=== PATIENT | female | born 1945 | race Caucasian/White ===

== ENCOUNTER → 2016-12-26 | Day surgery (SDC) | payer OTHER ==
[2016-12-13 13:24] VITALS: Ht 170.2 cm; Wt 83.2 kg
[~2016-12-26] VITALS: Ht 170.2 cm; Wt 83.2 kg
[~2016-12-26] MED LIST: ACETAMINOPHEN 325 MG TAB PO PRN; AMVISC PLUS 0.8ML SYRINGE INT OCU ONE; ASPI81TA28 PO; ATOR-24 PO; ATROPINE SULFATE 0.1 MG/ML 5ML SYR IV PRN; BRIMONIDINE TART 0.2% OP SOLN PER DROP CHARGE ONE; BSS FLUSH ONE; DICY10CA12 PO; ENDOCOAT 0.85ML SYRINGE INT OCU ONE; EpHEDrine SULFATE INJ 50 MG/ML AMP IV PRN; EpINEphrine INJ 1MG/ML AMP 1 MG/ML AMP ONE; GLY/5 PO; LACTATED RINGER'S 1000ML 500 ML IV SCH; LIDOCAINE 4% OP SOLN DROP CHARGE ONE; LIDOCAINE 4% OP SOLN DROP CHARGE OPL SCH; LIDOCAINE HCL 1% MPF 2 ML VIAL ONE; LISI-729 PO; METF500T5 PO; MIDAZOLAM HCL 1 MG/ML 2ML VIAL ONE; MOXIFLOXACIN OPH SOLN PER DROP CHARGE ONE; OMEP40CA PO; POVIDONE-IODINE OP SOLN 30 ML BTL ONE; PROPARACAINE 0.5% OP SOLN PER DROP CHARGE OPL SCH; SITA50TA PO; TOBRAMYCIN/DEXAMETHASONE OPH OINT PER APPLN CHARGE ONE; VISCOAT 0.5ML SYRINGE INT OCU ONE
[2016-12-26] MEDS: PHENYLEPHRINE HCL 2.5% OP SOLN PER DROP CHARGE OPL SCH ×2 (06:40→06:45)
[2016-12-26] MEDS: TROPICAMIDE 1% OP SOLN PER DROP CHARGE OPL SCH ×2 (06:41→06:46)
[2016-12-26] MEDS: CYCLOPENTOLATE HCL 1% OP SOLN PER DROP CHARGE OPL SCH ×2 (06:42→06:47)
[2016-12-26] MEDS: KETOROLAC 0.5% OP SOLN PER DROP CHARGE OPL SCH ×2 (06:43→06:48)
[2016-12-26] MEDS: MOXIFLOXACIN OPH SOLN PER DROP CHARGE OPL SCH ×2 (06:44→06:54)
--- NOTE | 2016-12-26 06:49 | History & Physical Bridge - [place] ---
H&P Re-Evaluation Bridge Note: I have examined the patient, reviewed the History & Physical and in the interval since the performance of the History & Physical I have noted the following changes of clinical significance: No changes noted
--- NOTE | 2016-12-26 07:31 | Discharge Instructions-SurgCtr ---
Discharge Instructions Visit Reason for Visit: Cataract Left Eye Discharge Discharge Diagnosis / Problem: cataract left eye Discharge Goals Goal(s): Improve function Activity Recommendations Activity Limitations: per Instructions/Follow-up section Lifting Limitations: no more than 5 pounds Anesthesia . Post Anesthesia Instructions: If you have had General Anesthesia or IV Sedation: * Do not drive today. * Resume driving when surgeon permits. * Do not make important decisions or sign legal documents today. * Call surgeon for: 1. Temperature elevations greater than 101 degrees F. 2. Uncontrollable pain. 3. Excessive bleeding. 4. Persistent nausea and vomiting. 5. Medication intolerance (nausea, vomiting or rash). * For nausea and vomiting use only clear liquids such as: tea, soda, bouillon until nausea subsides, then gradually increase diet as tolerated. * If you have any concerns or questions, call your surgeon's office. If physician is unavailable and it is an emergency, call 911 or go to the nearest emergency room. . Instructions / Follow-Up Instructions / Follow-Up ACTIVITY RECOMMENDATIONS: * Light activities * You may walk outside, read, watch television. * Mild irritation and blurred vision are common for the first few days, redness around the white part of the eye is common. MEDICATIONS: Resume previous medications unless instructed otherwise by your surgeon. Eye drops (today and tomorrow): Ofloxacin - one drop in operative eye every 2 hours while awake Prednisolone 1% - one drop in operative eye every 2 hours while awake Bromfenac - one drop in operative eye once daily SPECIAL CARE INSTRUCTIONS: * If any problems or concerns, please call Dr. Winter's office at . * Keep plastic shield taped over eye to sleep at night. * Keep plastic shield taped over eye except to administer eye drops. * Keep plastic shield on until office visit the following day. FOLLOW UP VISIT: Follow-up with Dr. Winter in the [place] office as scheduled. If not already scheduled, please call the office at . Diet Recommendations Home Diet: resume previous diet Procedures Procedures Performed: Left Cataract Phacoemulsification With Intraocular Lens Implant Pending Studies Studies pending at discharge: no Medical Emergencies . Who to Call and When: Medical Emergencies: If at any time you feel your situation is an emergency, please call 911 immediately. . Non-Emergent Contact Non-Emergency issues call your: Veterans' Counselor . . "Provider Documentation" section prepared by Farooq Winter.
--- NOTE | 2016-12-26 07:31 | [facility] Post Operative Brief Note ---
Immediate Operative Summary Operative Date Dec 26, 2016. Pre-Operative Diagnosis cataract left eye Post-Operative Diagnosis same Procedure(s) Performed Left Cataract Phacoemulsification With Intraocular Lens Implant Surgeon Dr. Winter Experimental Display Builder Surgeon(s) none Estimated Blood Loss 0 Findings cataract left eye Specimens none Complication(s) None Disposition Recovery Room / PACU
[2016-12-26 07:32] VITALS: TEMP 36.9
--- NOTE | 2016-12-26 07:42 | Anesthesia Progress Nt - [facility] ---
Anesthesia Post Op Note Date & Time Dec 26, 2016 at 07:43 Vital Signs Pain Intensity: 0 Vital Signs Past 12 Hours Date Time Temp Pulse Resp B/P Pulse Ox O2 Delivery O2 Flow Rate FiO2 12/26/16 07:32 36.9 80 14 133/82 98 Room Air 12/26/16 06:39 36.6 88 16 159/79 98 Room Air Notes Mental Status: alert / awake / arousable, participated in evaluation Pt Amnestic to Procedure: Yes Nausea / Vomiting: adequately controlled Pain: adequately controlled Airway Patency, RR, SpO2: stable & adequate BP & HR: stable & adequate Hydration State: stable & adequate Anesthetic Complications: no major complications apparent
[2016-12-26 07:55] VITALS: BP 126/75; PULSE 78; O2SAT 97
--- NOTE | 2016-12-26 08:43 | OPERATIVE REPORT ---
DATE OF OPERATION: 12/26/2016 PREOPERATIVE DIAGNOSIS: Cataract, left eye. POSTOPERATIVE DIAGNOSIS: Cataract, left eye. PROCEDURE: Phacoemulsification cataract extraction with intraocular lens placement, left eye. SURGEON: Dr. Winter. COMPLICATIONS: None. ESTIMATED BLOOD LOSS: None. ANESTHESIA: Topical with sedation. OPERATION AND FINDINGS: After informed consent was obtained in the holding area the patient was wheeled back to the Operating Room where cardiac monitoring leads and oxygen by nasal cannula was administered by Anesthesia. Gentle IV sedation was given, and the patient's left eye was prepped and draped in usual sterile fashion. A wire lid speculum was placed into the left eye and the operating microscope was swung into position. Using 0.12 forceps and a Supersharp blade a paracentesis port was made 3 o'clock hours away from the 3 o'clock position of patient's left eye. 1% non-preserved Lidocaine was then injected into the anterior chamber for anesthesia. A 2.2 mm keratotome blade was then used to make a shelved clear corneal incision at the 3 o'clock position of her left eye. Amvisc was injected into the anterior chamber and a cystotome and Utrata forceps were used to perform a curvilinear capsulorrhexis. BSS on a hydrodissection cannula was used to hydrodissect the lens nucleus away from the capsular bag. The phacoemulsification handpiece was then used in a stop and chop fashion to remove the lens nucleus. The irrigation and aspiration handpiece was then used to remove the residual cortical material. Amvisc was injected into the capsular bag and anterior chamber and a Bausch \T\ Lomb MX60 28.5 Diopter intraocular lens was injected into the capsular bag. Irrigation and aspiration handpiece was used to remove the residual viscoelastic material. The wounds were hydrated and noted to be watertight. The wire lid speculum was removed from the eye. Vigamox, Brimonidine, and TobraDex ointment were placed on the eye and it was shielded. It should be noted that EndoCoat was used throughout the case to protect the cornea endothelium. DISPOSITION: The patient tolerated the procedure well and was wheeled to the post anesthesia care unit in stable condition. I attest to the content of the Intraoperative Record and any orders documented therein. Any exceptions are noted below. I attest to the content of the Intraoperative Record and any orders documented therein. Any exceptio ns are noted below.
== END | disposition home or self-care (01) ==
LOC: X.SURG 06:30
PROVIDERS: ATTEND Ophthalmology
DX: H25.12 Age-related nuclear cataract, left eye (principal); E11.9 Type 2 diabetes mellitus without complications; K21.9 Gastro-esophageal reflux disease without esophagitis; E78.00 Pure hypercholesterolemia, unspecified; Z96.653 Presence of artificial knee joint, bilateral

== ENCOUNTER 2018-03-21 16:42 | Emergency (ER) | payer OTHER ==
[~2018-03-21] VITALS: Ht 170.2 cm; Wt 76.5 kg
[~2018-03-21 16:42] MED LIST changes: -ACETAMINOPHEN 325 MG TAB PO PRN; -AMVISC PLUS 0.8ML SYRINGE INT OCU ONE; -ATROPINE SULFATE 0.1 MG/ML 5ML SYR IV PRN; -BRIMONIDINE TART 0.2% OP SOLN PER DROP CHARGE ONE; -BSS FLUSH ONE; -ENDOCOAT 0.85ML SYRINGE INT OCU ONE; -EpHEDrine SULFATE INJ 50 MG/ML AMP IV PRN; -EpINEphrine INJ 1MG/ML AMP 1 MG/ML AMP ONE; -LACTATED RINGER'S 1000ML 500 ML IV SCH; -LIDOCAINE 4% OP SOLN DROP CHARGE ONE; -LIDOCAINE 4% OP SOLN DROP CHARGE OPL SCH; -LIDOCAINE HCL 1% MPF 2 ML VIAL ONE; -MIDAZOLAM HCL 1 MG/ML 2ML VIAL ONE; -MOXIFLOXACIN OPH SOLN PER DROP CHARGE ONE; -POVIDONE-IODINE OP SOLN 30 ML BTL ONE; -PROPARACAINE 0.5% OP SOLN PER DROP CHARGE OPL SCH; -TOBRAMYCIN/DEXAMETHASONE OPH OINT PER APPLN CHARGE ONE; -VISCOAT 0.5ML SYRINGE INT OCU ONE
[2018-03-21 16:46] VITALS: TEMP 36.7; Ht 170.2 cm; Wt 76.5 kg
[2018-03-21] MEDS ORDERED: SODIUM CHLORIDE 0.9% 1000ML 1,000 ML IV STA ×2 (17:16→19:20)
[2018-03-21] MEDS ORDERED: SITA100T3 PO (18:00)
[2018-03-21] MEDS ORDERED: LEVO1TAB33 PO (18:00)
[2018-03-21] MEDS ORDERED: EMPA1TAB3 PO (18:00)
[2018-03-21] MEDS ORDERED: GLIP-199 PO (18:00)
[2018-03-21] MEDS ORDERED: CYAN500S5 PO (18:00)
[2018-03-21 18:04] LABS: HEMOGLOBIN 11.1 g/dL (12.0-16.0); MEAN CELL VOLUME 80.5 fL (80-100); MEAN CORPUSCULAR HEMOGLOBIN 27.1 pg (25-34); MEAN CORPUSCULAR HGB CONC 33.6 g/dl (32-36); PLATELET COUNT 408 K/uL (130-400); RED CELL DISTRIBUTION WIDTH CV 14.2 % (11.5-14.5); RED CELL DISTRIBUTION WIDTH SD 41.5 fL (36.4-46.3); WHITE BLOOD COUNT 18.31 K/uL (4.8-10.8)
[2018-03-21] MEDS ORDERED: PSEU60TA80 PO (18:06)
--- NOTE | 2018-03-21 18:06 | DIAGNOSTIC IMAGING REPORT ---
CHEST 2 VIEWS ROUTINE HISTORY: 72 years-old Female cough, outp pneumonia acute cough with history of pneumonia COMPARISON: None available TECHNIQUE: PA and lateral views of the chest FINDINGS: Alveolar opacities of the anterior segment right upper lobe. Cardiac silhouette is within normal limits. Atherosclerosis of the aorta. No pneumothorax or pleural effusion. Moderate sized hiatal hernia with partially intrathoracic stomach. Linear subsegmental left basilar opacities suggest atelectasis or scarring. The bones of the chest appear grossly intact. Degenerative changes are seen within the shoulders and spine. IMPRESSION: 1. Alveolar opacities of the anterior segment right upper lobe suggest pneumonia. Follow-up imaging to document resolution is recommended. 2. Moderate hiatal hernia with partially intrathoracic stomach. The above report was generated using voice recognition software. It may contain grammatical, syntax or spelling errors. Electronically signed by: Richard Farrell M.D. 03/21/2018 6:05 PM Dictated Date/Time: 03/21/2018 6:03 PM
[2018-03-21 18:22] LABS: ALBUMIN 2.6 gm/dl (3.4-5.0); ALT/SGPT 23 U/L (12-78); AST/SGOT 24 U/L (15-37); BLOOD UREA NITROGEN 13 mg/dl (7-18); CALCIUM 9.3 mg/dl (8.5-10.1); CARBON DIOXIDE 23 mmol/L (21-32); CREATININE 0.73 mg/dl (0.60-1.20); GLUCOSE 126 mg/dl (70-99); POTASSIUM 4.2 mmol/L (3.5-5.1); SODIUM 129 mmol/L (136-145)
[2018-03-21 18:27] LABS: ALKALINE PHOSPHATASE 121 U/L (45-117); TOTAL PROTEIN 7.8 gm/dl (6.4-8.2)
[2018-03-21 18:28] LABS: BASO % 0.2 %; BASO ABS # 0.04 K/uL (0-0.2); EOS ABS # 0.18 K/uL (0-0.5); IG# 0.79 K/uL (0.00-0.02); LYMPH % 15.6 %; LYMPH ABS # 2.86 K/uL (1.2-3.4); MONO % 8.5 %; MONO ABS # 1.56 K/uL (0.11-0.59); NEUT % 70.4 %; NEUT ABS # 12.88 K/uL (1.4-6.5)
[2018-03-21 18:29] LABS: INFLUENZA B ANTIGEN Neg for Influ B (NEG)
[2018-03-21] MEDS ORDERED: ACETAMINOPHEN 500 MG TAB PO STA (19:34)
[2018-03-21 21:05] VITALS: BP 128/77; PULSE 90; O2SAT 95
--- NOTE | 2018-03-21 21:09 | EMERGENCY ROOM VISIT NOTE ---
History Report prepared by Ratna: Kaitlyn Rowell Under the Supervision of: Dr. Tamica Waldrop D.O. First contact with patient: 16:50 Chief Complaint: RESPIRATORY PROBLEMS Stated Complaint: PNEUMONIA, DIABETES, LETHARGIC- REFERRED History of Present Illness The patient is a 72 year old female who presents to the Emergency Room with complaints of persistent cough starting several days ago. The patient developed a cough while she was on a cruise to [place]. She had a negative flu swab on the cruise. She went to see a doctor yesterday after returning home. states she had a fever while on the cruise ship and at home yesterday, and states today her temperature was low. She had a chest X-ray which showed right sided pneumonia and lab work showing WBC of 23. The patient has had pneumonia in the past, but her symptoms seem to be worse this time around. She was started on Levaquin and has taken 2 doses so far. She is coughing up yellow sputum, but no blood. Her ears feel clogged. She has had some pain in her back and in her ribs. She feels SOB at times. She feels fatigued. She denies any fever, chills, nausea, leg swelling, diarrhea, or urinary symptoms. She denies any history of asthma, COPD, or smoking. She has a history of diabetes. She has not been eating, drinking, or taking her medications as normal. Her blood sugar was 191 earlier today. She is normally around 140. She did receive a flu shot this season. She has not had the flu. She denies any history of kidney problems. Source of History: patient, family Onset: several days ago Position: chest Quality: other (cough) Timing: other (persistent) Associated Symptoms: + SOB, + back pain, + fatigue, No fevers, No chills, No nausea, No diarrhea, No urinary symptoms Review of Systems See HPI for pertinent positives & negatives. A total of 10 systems reviewed and were otherwise negative. Past Medical & Surgical Medical Problems: (1) Diabetes Family History Diabetes mellitus Social History Smoking Status: Never Smoker Marital Status: Housing Status: lives with significant other Occupation Status: retired Current/Historical Medications Scheduled Aspirin (Aspirin Ec), 81 MG PO QAM Atorvastatin (Lipitor), 40 MG PO QPM Cyanocobalamin (Vitamin B-12), 500 MCG PO QAM Empagliflozin (Jardiance), 25 MG PO QAM Glipizide (Glipizide Er), 1 TAB PO QAM Glyburide (Diabeta), 1 TAB PO QAM Levofloxacin (Levaquin), 500 MG PO QAM Lisinopril (Zestril), 5 MG PO HS Metformin Hcl Er (Glucophage Er), 1,000 MG PO BIDM Omeprazole (Prilosec), 40 MG PO QAM Pseudoephedrine-Guaifenesin (Mucinex D), 1 TAB PO BID Sitagliptin Phosphate (Januvia), 100 MG PO QAM Allergies Coded Allergies: No Known Allergies (Unverified , 03/21/18) Physical Exam Vital Signs Date Time Temp Pulse Resp B/P (MAP) Pulse Ox O2 Delivery O2 Flow Rate FiO2 03/21/18 21:05 90 22 128/77 95 Room Air 03/21/18 20:41 103 22 95 Room Air 03/21/18 19:10 89 20 130/74 96 Room Air 03/21/18 18:27 81 18 131/64 98 Room Air 03/21/18 17:37 86 03/21/18 17:18 Room Air 03/21/18 17:02 Room Air 03/21/18 16:46 36.7 97 20 150/77 96 Room Air Physical Exam GENERAL: alert, ill appearing, productive cough during exam, well nourished, no distress, non-toxic EYE EXAM: normal conjunctiva, PERRL and EOM's grossly intact OROPHARYNX: no exudate, no erythema, lips, buccal mucosa, and tongue normal and mucous membranes are moist NECK: supple, no nuchal rigidity, no adenopathy, non-tender LUNGS: Faint basilar rales noted. Normal chest wall mechanics HEART: no murmurs, S1 normal and S2 normal ABDOMEN: abdomen soft, non-tender, normo-active bowel sounds, no masses, no rebound or guarding. BACK: Back is symmetrical on inspection and there is no deformity, no midline tenderness, no CVA tenderness. SKIN: no rashes and no bruising UPPER EXTREMITIES: upper extremities are grossly normal. LOWER EXTREMITIES: No pitting edema. NEURO EXAM: Normal sensorium, cranial nerves II-XII grossly intact, normal speech, no gross weakness of arms, no gross weakness of legs. Medical Decision & Procedures ER Provider Diagnostic Interpretation: Radiology results have been interpreted by the radiologist and reviewed by me. CHEST 2 VIEWS ROUTINE HISTORY: 72 years-old Female cough, outp pneumonia acute cough with history of pneumonia COMPARISON: None available TECHNIQUE: PA and lateral views of the chest FINDINGS: Alveolar opacities of the anterior segment right upper lobe. Cardiac silhouette is within normal limits. Atherosclerosis of the aorta. No pneumothorax or pleural effusion. Moderate sized hiatal hernia with partially intrathoracic stomach. Linear subsegmental left basilar opacities suggest atelectasis or scarring. The bones of the chest appear grossly intact. Degenerative changes are seen within the shoulders and spine. IMPRESSION: 1. Alveolar opacities of the anterior segment right upper lobe suggest pneumonia. Follow-up imaging to document resolution is recommended. 2. Moderate hiatal hernia with partially intrathoracic stomach. The above report was generated using voice recognition software. It may contain grammatical, syntax or spelling errors. Electronically signed by: Richard Farrell M.D. 03/21/2018 6:05 PM Dictated Date/Time: 03/21/2018 6:03 PM Laboratory Results 03/21/18 17:31 Red Blood Count 4.10, Mean Corpuscular Volume 80.5, Mean Corpuscular Hemoglobin 27.1, Mean Corpuscular Hemoglobin Concent 33.6, Mean Platelet Volume 9.0, Neutrophils (%) (Auto) 70.4, Lymphocytes (%) (Auto) 15.6, Monocytes (%) (Auto) 8.5, Eosinophils (%) (Auto) 1.0, Basophils (%) (Auto) 0.2, Neutrophils # (Auto) 12.88, Lymphocytes # (Auto) 2.86, Monocytes # (Auto) 1.56, Eosinophils # (Auto) 0.18, Basophils # (Auto) 0.04 03/21/18 17:31 Test 03/21/18 17:31 03/21/18 17:39 03/21/18 17:50 White Blood Count 18.31 K/uL (4.8-10.8) Red Blood Count 4.10 M/uL (4.2-5.4) Hemoglobin 11.1 g/dL (12.0-16.0) Hematocrit 33.0 % (37-47) Mean Corpuscular Volume 80.5 fL (80-100) Mean Corpuscular Hemoglobin 27.1 pg (25-34) Mean Corpuscular Hemoglobin Concent 33.6 g/dl (32-36) Platelet Count 408 K/uL (130-400) Mean Platelet Volume 9.0 fL (7.4-10.4) Neutrophils (%) (Auto) 70.4 % Lymphocytes (%) (Auto) 15.6 % Monocytes (%) (Auto) 8.5 % Eosinophils (%) (Auto) 1.0 % Basophils (%) (Auto) 0.2 % Neutrophils # (Auto) 12.88 K/uL (1.4-6.5) Lymphocytes # (Auto) 2.86 K/uL (1.2-3.4) Monocytes # (Auto) 1.56 K/uL (0.11-0.59) Eosinophils # (Auto) 0.18 K/uL (0-0.5) Basophils # (Auto) 0.04 K/uL (0-0.2) RDW Standard Deviation 41.5 fL (36.4-46.3) RDW Coefficient of Variation 14.2 % (11.5-14.5) Immature Granulocyte % (Auto) 4.3 % Immature Granulocyte # (Auto) 0.79 K/uL (0.00-0.02) Microcytosis PRESENT Echinocytes 2+ Anion Gap 7.0 mmol/L (3-11) Est Creatinine Clear Calc Drug Dose 74.3 ml/min Estimated GFR () 95.4 Estimated GFR (Non- 82.3 BUN/Creatinine Ratio 17.4 (10-20) Calcium Level 9.3 mg/dl (8.5-10.1) Magnesium Level 1.9 mg/dl (1.8-2.4) Total Bilirubin 0.5 mg/dl (0.2-1) Aspartate Amino Transf (AST/SGOT) 24 U/L (15-37) Alanine Aminotransferase (ALT/SGPT) 23 U/L (12-78) Alkaline Phosphatase 121 U/L (45-117) Troponin I < 0.015 ng/ml (0-0.045) Pro-B-Type Natriuretic Peptide 216 pg/ml (0-900) Total Protein 7.8 gm/dl (6.4-8.2) Albumin 2.6 gm/dl (3.4-5.0) Globulin 5.2 gm/dl (2.5-4.0) Albumin/Globulin Ratio 0.5 (0.9-2) Bedside Lactic Acid Venous 1.02 mmol/L (0.90-1.70) Influenza Type A Antigen Neg for Influ A (NEG) Influenza Type B Antigen Neg for Influ B (NEG) Laboratory results per my review. Medications Administered Medications (Trade) Dose Ordered Sig/Jewel Route Start Time Stop Time Status Last Admin Dose Admin Sodium Chloride 1,000 ml @ 999 mls/hr Q1H1M STAT IV 03/21/18 17:16 03/21/18 18:16 DC 03/21/18 17:55 999 MLS/HR Sodium Chloride 1,000 ml @ 999 mls/hr Q1H1M STAT IV 03/21/18 19:20 03/21/18 20:20 DC 03/21/18 19:37 999 MLS/HR Acetaminophen (Tylenol Tab) 1,000 mg NOW STAT PO 03/21/18 19:34 03/21/18 19:35 DC 03/21/18 19:40 1,000 MG ECG Per My Interpretation Indication: SOB/dyspnea Rate (beats per minute): 90 Rhythm: sinus rhythm Findings: no acute ischemic change, no ectopy, other (normal axis, normal intervals) ED Course 1650: The patient was evaluated in room C3. A complete history and physical exam was performed. 1715: Sodium Chloride 1000 ml @ 999 mls/hr IV. 1913: I reevaluated the patient. She is feeling little better. She is still not requiring oxygen. I updated her on the lab results. 1919: Sodium Chloride 1000 ml @ 999 mls/hr IV. 1933: Acetaminophen 1000 mg PO. 2054: Upon reevaluation, the patient is feeling better. I discussed the findings and the treatment plan with the patient. She verbalizes agreement and understanding. She was discharged home. Medical Decision Differential diagnoses includes but is not limited to pneumonia, bronchitis, COPD/Asthma exacerbation, pneumothorax, pulmonary embolism, congestive heart failure, acute coronary syndrome CURB 65 - 1, low risk Pt initially ill appearing however markedly improved following IVF. Likely component of dehydration contributing to patient's ill appearance. Comparing blood work that was performed as an outpatient with out of today, patient's white blood cell count is improving and patient has had no issues taking her Levaquin so far. I do not suspect failed outpatient treatment. Patient's course as prescribed by her PCP was her Levaquin 500 mg for 10 days. Patient has had no worsening cough here, I do not see need for steroids. Patient with no prior history of asthma or COPD has not required any use of an MDI. Patient' s other blood work reassuring, no evidence of other organ system dysfunction. I do not suspect myocarditis/pericarditis, I do not suspect PE. Patient has not recently been immobilized, she has no prior history of any DVT/PE. She with no lower extremity swelling here. Patient with mild chest pain along the right lateral chest which is more likely consistent with her pneumonia based on chest x-ray findings. Lactic acid otherwise reassuring, patient hemodynamically stable throughout. I do not suspect bacteremia/sepsis. Patient has not required any additional oxygen supplementation or other hemodynamic support today. Following 2 L of IV fluids here, patient was tolerating p.o. well without any nausea or vomiting. Patient ambulate with a steady gait and was sent out any drop in her oxygen level. Patient reexamined multiple times, all questions answered at bedside, patient with appointment rescheduled for Monday with her PCP. Discussed with patient and family at bedside symptoms to watch and return for, continue use of antibiotic, consideration for taking a probiotic while she is on antibiotic, the importance of adequate hydration, they verbalized understanding were agreeable with plan. Medication Reconcilliation Current Medication List: was personally reviewed by me Blood Pressure Screening Patient's blood pressure: Elevated blood pressure Blood pressure disposition: Referred to PCP Impression Primary Impression: Pneumonia Additional Impression: Dehydration Scribe Attestation The scribe's documentation has been prepared under my direction and personally reviewed by me in its entirety. I confirm that the note above accurately reflects all work, treatment, procedures, and medical decision making performed by me. Departure Information Dispostion Home / Self-Care Referrals Farooq Winter MD (PCP) Forms HOME CARE DOCUMENTATION FORM, IMPORTANT VISIT INFORMATION, WORK / SCHOOL INSTRUCTIONS Patient Instructions My [facility] Additional Instructions Please continue your antibiotics as prescribed. Please take them until you complete the course. Please consider eating a yogurt daily or taking probiotics daily while you are on the antibiotic to prevent any GI side effects. Please drink clear liquids, primarily water, daily to stay well- hydrated. Please continue to check your blood sugar every day to monitor for fluctuations. If it is higher than 300 or lower than 80, please call 911 or come to the emergency room. If you have nausea, vomiting, or unable to eat or drink, develop diarrhea, dizziness, recurrent fevers, or you have any other new or concerning symptoms, please return the emergency room. Please keep your appointment on Monday with your family doctor. Problem Qualifiers Primary Impression: Pneumonia Pneumonia type: due to unspecified organism Laterality: right Lung location : upper lobe of lung Qualified Codes: J18.1 - Lobar pneumonia, unspecified organism
== END 2018-03-21 21:20 | disposition home or self-care (01) ==
LOC: C.EDB 16:44 → C.EDC 21:20
DX: J18.1 Lobar pneumonia, unspecified organism (principal); E86.0 Dehydration; E11.9 Type 2 diabetes mellitus without complications; Z79.899 Other long term (current) drug therapy

== ENCOUNTER 2019-11-27 23:03 | Inpatient (IN) ==
[2019-11-27] MEDS ORDERED: SODIUM CHLORIDE 0.9% 1000ML 1,000 ML IV SCH (23:30)
--- NOTE | 2019-11-28 00:07 | Emergency Department Note ---
Entered by Murray Whitmore acting as a scribe for History of Present Illness General Chief complaint: Rectal Bleed Stated complaint: BLEEDING FROM RECTUM Source: patient History of Present Illness Onset (ago): day(s) (this morning) Location: abdomen (rectum) Pain Consistency: + other (persistent) Maximum Pain Intensity: 0 Quality: + other (rectal bleeding) Associated symptoms: + other (Positive for abdominal pain, diarrhea, vomiting, and chills.) The patient is a 74 year old female who presents to the emergency department with complaints of persistent rectal bleeding beginning this morning. The patient states that she had an episode of severe abdominal pain yesterday around 193. She notes that she went to the bathroom and had a small bowel movement at that time. She reports that she then started having diarrhea, and she also had vomiting and chills. The patient states that her episode lasted for an hour, and she notes that she felt fine this morning when she woke up. She reports that she passed a blood clot this morning when she tried to have a bowel movement. The patient states that she then came into the emergency department and was disch arged home after negative testing. She notes that she has since been passing liquid red blood. She reports that she has been having rectal bleeding even though she has not had a bowel movement today. Home Medications Home Medications Medication Instructions Recorded Confirmed Type aspirin 81 mg PO DAILY #0 06/02/16 11/27/19 History atorvastatin 40 mg PO PM #0 06/02/16 11/27/19 History lisinopril 5 mg PO DAILY #0 06/02/16 11/27/19 History metformin 1,000 mg PO BID #0 06/02/16 11/27/19 History omeprazole 40 mg PO QAM #0 06/02/16 11/27/19 History glipizide 10 mg PO DAILY #0 03/21/18 11/27/19 History empagliflozin-linagliptin 1 tab PO DAILY 11/27/19 11/27/19 History [Glyxambi] sulfamethoxazole-trimethoprim 1 tab PO BID 11/27/19 11/27/19 History Allergies Allergy/AdvReac Type Severity Reaction Status Date / Time No Known Allergies Allergy Unverified 11/27/19 23:42 Past Med/Surg History Medical History (Updated 11/28/19 @ 00:39 by Murray Whitmore) Colitis (Acute) Diabetes (Chronic) Family History (Updated 11/27/19 @ 23:50 by Murray Whitmore) Other No significant family history Social History Preferred Language: Lao Feels Safe at Home: Yes Smoking Status: Never smoker Review of Systems See HPI for pertinent positives & negatives. and A total of 10 systems reviewed and were otherwise negative Physical Exam Vital Signs Vital Signs - 24 hr 11/27/19 23:08 11/28/19 01:01 Temperature 36.5 C Temperature Source Oral Pulse Rate 102 H Pulse Rate [Apical] 78 Pulse Rhythm Regular Pulse Strength Normal Respiratory Rate 20 18 Respiratory Effort / Characteristics Non-Labored Spontaneous Non-Labored Spontaneous Respiratory Depth Normal Normal Respiratory Pattern Regular Blood Pressure 186/84 H Blood Pressure [Left Arm] 121/58 L Blood Pressure Mean 118 Blood Pressure Mean [Left Arm] 79 Blood Pressure Position Sitting Pulse Oximetry 99 98 Oxygen Delivery Method Room Air Room Air Sepsis Recent Fever Within 48 Hours No Sepsis Action Taken by Nursing No Action Required Vital signs reviewed. General: Well-appearing female, in no significant distress. HEENT: No conjunctival injection, moist mucous membranes. Cardiovascular: Regular rate and rhythm, no extra sounds. Pulmonary: Clear to auscultation bilaterally, normal work of breathing. Abdomen: Soft, nontender, nondistended, positive bowel sounds. Musculoskeletal: Atraumatic, no peripheral edema. Rectal: Grossly bloody rectal discharge. Normal external rectal mucosa. Neurologic: Patient awake alert and oriented x 3. Skin: Warm, dry, no rash Course Course 2321: The patient was evaluated in room B2. A complete history and physical exam was performed. 0037: Upon reevaluation, the patient is stable. I discussed the findings and the treatment plan with the patient. She expresses agreement and understanding. I spoke with Dr. Holley of the [facility]. The patient will be evaluated for further management. Consultations Consultation #1: I [facility] the [facility] He will evaluate the patient for further management. Time: 00:37 Administered Medications Discontinued Medications Sodium Chloride (Nss 1000ml) 1,000 mls @ 100 mls/hr IV .Q10H NADIA Stop: 11/28/19 09:29 Last Admin: 01/08/20 23:55 Dose: 100 mls/hr Documented by: [id number] Medical Decision Making Differential Diagnosis Differential diagnosis: Etiologies such as esophagitis, variceal bleed, [place], [place] tear, gastritis, peptic ulcer disease, AVM, inflammatory bowel disease, ischemia, diverticulosis, colitis, malignancy, coagulopathy, thrombocytopenia, fissure, hemorrhoid, epistaxis , as well as others were entertained. Medical Records Attestation: I reviewed the patient's medical records. Home Medications Current Medication List: was personally reviewed by me Laboratory Data Attestation: I reviewed the patient's lab results. Result diagrams: 11/28/19 00:13 11/28/19 00:13 Lab Results 11/28/19 11/28/19 11/28/19 Range/Units 00:13 00:13 00:13 WBC 12.25 H (4.8-10.8) K/uL RBC 4.12 L (4.2-5.4) M/uL Hgb 11.0 L (12.0-16.0) g/dL Hct 34.0 L (37-47) % MCV 82.5 (80-100) fL MCH 26.7 (25-34) pg MCHC 32.4 (32-36) g/dL RDW Std Deviation 45.0 (36.4-46.3) fL RDW Coeff of Fitz 15.0 H (11.5-14.5) % Plt Count 228 (130-400) K/uL MPV 9.7 (7.4-10.4) fL Immature Gran % (Auto) 0.3 % Neut % (Auto) 60.7 % Lymph % (Auto) 30.4 % [place] % (Auto) 6.8 % Eos % (Auto) 1.5 % Baso % (Auto) 0.3 % Immature Gran # (Auto) 0.04 H (0.00-0.02) K/uL Neut # (Auto) 7.44 H (1.4-6.5) K/uL Lymph # (Auto) 3.72 H (1.2-3.4) K/uL [place] # (Auto) 0.83 H (0.11-0.59) K/uL Eos # (Auto) 0.18 (0-0.5) K/uL Baso # (Auto) 0.04 (0-0.2) K/uL PT 10.7 (9.0-12.0) Seconds INR 1.0 (0.9-1.1) APTT 23.4 (21.0-31.0) Seconds PTT Ratio 0.9 Sodium 139 (136-145) mmol/L Potassium 3.6 D (3.5-5.1) mmol/L Chloride 112 H (98-107) mmol/L Carbon Dioxide 22 (21-32) mmol/L Anion Gap 5.0 (3-11) BUN 18 (7-18) mg/dl Creatinine 0.89 (0.6-1.2) mg/dl Est Cr Clr Drug Dosing 56.5 ml/min Est GFR ( Amer) 74.0 Est GFR (Non-Af Amer) 63.8 BUN/Creatinine Ratio 20.3 H (10-20) Glucose 126 H (70-99) mg/dl Calcium 8.4 L (8.5-10.1) mg/dl Total Bilirubin 0.3 (0.2-1) mg/dl AST 8 L (15-37) U/L ALT 19 (12-78) U/L Alkaline Phosphatase 83 (45-117) U/L Total Protein 6.8 (6.4-8.2) gm/dl Albumin 3.1 L (3.4-5.0) gm/dl Globulin 3.7 (2.5-4.0) gm/dl Albumin/Globulin Ratio 0.8 L (0.9-2) Blood Type Antibody Screen 11/28/19 Range/Units 00:13 WBC (4.8-10.8) K/uL RBC (4.2-5.4) M/uL Hgb (12.0-16.0) g/dL Hct (37-47) % MCV (80-100) fL MCH (25-34) pg MCHC (32-36) g/dL RDW Std Deviation (36.4-46.3) fL RDW Coeff of Fitz (11.5-14.5) % Plt Count (130-400) K/uL MPV (7.4-10.4) fL Immature Gran % (Auto) % Neut % (Auto) % Lymph % (Auto) % [place] % (Auto) % Eos % (Auto) % Baso % (Auto) % Immature Gran # (Auto) (0.00-0.02) K/uL Neut # (Auto) (1.4-6.5) K/uL Lymph # (Auto) (1.2-3.4) K/uL [place] # (Auto) (0.11-0.59) K/uL Eos # (Auto) (0-0.5) K/uL Baso # (Auto) (0-0.2) K/uL PT (9.0-12.0) Seconds INR (0.9-1.1) APTT (21.0-31.0) Seconds PTT Ratio Sodium (136-145) mmol/L Potassium (3.5-5.1) mmol/L Chloride (98-107) mmol/L Carbon Dioxide (21-32) mmol/L Anion Gap (3-11) BUN (7-18) mg/dl Creatinine (0.6-1.2) mg/dl Est Cr Clr Drug Dosing ml/min Est GFR ( Amer) Est GFR (Non-Af Amer) BUN/Creatinine Ratio (10-20) Glucose (70-99) mg/dl Calcium (8.5-10.1) mg/dl Total Bilirubin (0.2-1) mg/dl AST (15-37) U/L ALT (12-78) U/L Alkaline Phosphatase (45-117) U/L Total Protein (6.4-8.2) gm/dl Albumin (3.4-5.0) gm/dl Globulin (2.5-4.0) gm/dl Albumin/Globulin Ratio (0.9-2) Blood Type O Positive Antibody Screen NEGATIVE Blood Pressure Blood Pressure Findings: Elevated blood pressure Blood Pressure Disposition: further management by hospitalist MDM Narrative This patient was evaluated and appeared to be in no significant distress. Phys ical examination is fairly unrevealing. Patient is found to have bright red blood per rectum however the external mucosa is normal in appearance. There is no appreciable rectal fissure. Laboratory work reveals a mild leukocytosis which is improved from the last visit. Hemoglobin has dropped just over one- point from earlier today. CT imaging earlier today was reviewed. At this time I feel the patient will benefit from evaluation by the hospitalist service. She was made aware of the plan and agrees. Dr. Holley was consulted for further management. Patient expressed understanding of the plan and agrees. Impression & Plan GI bleed, Bright red blood per rectum Discharge Plan Visit Data *Final* Discharge Date/Time: 11/28/19 03:20 Chief Complaint: Rectal Bleed Stated Complaint: BLEEDING FROM RECTUM ED Provider: Marguerite Cohn Discharge Problem: GI bleed, Bright red blood per rectum Patient Disposition: Admitted As Inpatient Discharge Problem: GI bleed Qualifiers: GI bleed type/associated pathology: unspecified gastrointestinal hemorrhage type Qualified Code(s): K92.2 - Gastrointestinal hemorrhage, unspecified The scribe's documentation has been prepared under my direction and personally reviewed by me in its entirety. I confirm that the note above accurately reflects all work, treatment, procedures, and medical decision making performed by me.
[2019-11-28 00:25] LABS: Basophils # (auto) 0.04 K/uL (0-0.2); Basophils % (auto) 0.3 %; Eosinophils # (auto) 0.18 K/uL (0-0.5); Eosinophils % (auto) 1.5 %; Immature Granulocytes # (auto) 0.04 K/uL (0.00-0.02); Immature Granulocytes % (auto) 0.3 %; Lymphocytes # (auto) 3.72 K/uL (1.2-3.4); Lymphocytes % (auto) 30.4 %; Mean Corpuscular Hemoglobin 26.7 pg (25-34); Mean Corpuscular Hgb Conc 32.4 g/dL (32-36); Mean Corpuscular Volume 82.5 fL (80-100); Mean Platelet Volume 9.7 fL (7.4-10.4); Monocytes # (auto) 0.83 K/uL (0.11-0.59); Monocytes % (auto) 6.8 %; Neutrophils # (auto) 7.44 K/uL (1.4-6.5); Neutrophils % (auto) 60.7 %; Platelet Count 228 K/uL (130-400); Red Blood Count 4.12 M/uL (4.2-5.4); White Blood Count 12.25 K/uL (4.8-10.8)
[2019-11-28 00:40] LABS: Partial Thromboplastin Ratio 0.9; Partial Thromboplastin Time 23.4 Seconds (21.0-31.0); Prothrombin Time 10.7 Seconds (9.0-12.0)
[2019-11-28 00:47] LABS: Albumin Level 3.1 gm/dl (3.4-5.0); BUN Creatinine Ratio 20.3 (10-20); Calcium 8.4 mg/dl (8.5-10.1); Creatinine Clr Calc Pharmacy 56.5 ml/min; Est GFR (Non-African American) 63.8; Potassium 3.6 mmol/L (3.5-5.1)
[2019-11-28 00:50] LABS: Albumin Globulin Ratio 0.8 (0.9-2); Bilirubin,Total 0.3 mg/dl (0.2-1); Globulin 3.7 gm/dl (2.5-4.0); Total Protein 6.8 gm/dl (6.4-8.2)
[2019-11-28] MEDS ORDERED: NITROGLYCERIN SL 0.4 MG/TAB TAB SL PRN (03:41)
[2019-11-28] MEDS ORDERED: ONDANSETRON INJ 2 MG/ML 2 ML VIAL IV PRN (03:41)
[2019-11-28] MEDS ORDERED: ACETAMINOPHEN 325 MG TAB PO PRN (03:41)
[2019-11-28] MEDS: SODIUM CHLORIDE 0.9% 1000ML 1,000 ML IV SCH ×3 (03:45→20:04)
[2019-11-28] MEDS ORDERED: GLUCAGON FOR INJ 1 MG VIAL SQ PRN (04:15)
[2019-11-28] MEDS ORDERED: GLUCOSE 10 TABS/TUBE PO PRN (04:15)
[2019-11-28] MEDS ORDERED: CARBOHYDRATES FOR HYPOGLYCEMIA PO PRN (04:15)
[2019-11-28] MEDS ORDERED: DEXTROSE 50% 50 ML SYRINGE IV PRN (04:15)
[2019-11-28] MEDS ORDERED: GLUCOSE 40% GEL 15 GM TUBE PO PRN (04:15)
--- NOTE | 2019-11-28 06:39 | History and Physical Report ---
DATE OF ADMISSION: 11/28/2019 CHIEF COMPLAINT: Rectal bleed. HISTORY OF PRESENT ILLNESS: This is a 74-year-old female with past medical history significant for type 2 diabetes, hyperlipidemia, hypertension, GERD, irritable bowel syndrome, history of rectocele, cystocele, uterovaginal prolapse, chronic serous otitis media of both ears, generalized anxiety disorder, who presents with rectal bleed. The patient says yesterday night she had severe abdominal pain and several episodes of diarrhea and vomiting and that got resolved, but yesterday morning then she developed some clots in her blood, few episodes, so she came to the ER. In the ER, she had no more bleeding. Her hemoglobin was stable and CAT scan showed some colitis and cystocele, which was chronic. As the bleeding seemed to stop, she was discharged home and advised to come back if the bleeding recurs, but after going home, from 3:30 pm she had several episodes of bright red blood per rectum and getting worse, so she came to the ER. After coming to the ER, the bleeding stopped and her hemoglobin has dropped from 12.2 to 11. Currently resting comfortably and hemodynamically stable. She had severe belly pain when she had diarrhea last night, but currently there is no pain. Denies any chest pain. No shortness of breath, no cough, no fever, no chills, no headache, no blurred vision, no runny nose, no sore throat, no difficulty swallowing. Otherwise, appetite is okay. Ambulates okay. No hematuria, no burning micturition, no swelling in the legs, no rash. ALLERGIES: No known drug allergies. PAST MEDICAL HISTORY: As mentioned above. PAST SURGICAL HISTORY: Bilateral total knee arthroplasties, cataract surgeries. MEDICATIONS: The patient is on Glyxambi 25/5 mg 1 tablet daily, Bactrim 1 tablet b.i.d. for 10 days, Lipitor 40 mg p.o. daily, glipizide 10 mg p.o. daily, lisinopril 5 mg p.o. daily, omeprazole 40 mg p.o. daily, metformin ER 1000 mg p.o. b.i.d., albuterol p.r.n., aspirin 81 mg p.o. daily. FAMILY HISTORY: Significant for father had lung disorder, mother had NH, aunt has diabetes. SOCIAL HISTORY: , lives with . No smoking. Alcohol occasional. No drug use. REVIEW OF SYSTEMS: As per HPI. Rest of the review of systems negative. PHYSICAL EXAMINATION: GENERAL: The patient is of moderate build, not in acute distress. VITAL SIGNS: Temperature of 36.5, pulse 78, respiratory rate 18, blood pressure 121/58, oxygen 98% on room air. HEENT: No pallor, no icterus. Pupils equal, round, and reactive to light. NECK: No JVD, no neck masses, no carotid bruits. CARDIOVASCULAR: S1, S2 heard, regular rate and rhythm, no murmur, no gallop. RESPIRATORY SYSTEM: Normal AP diameter. No accessory muscle use. No wheezing, no crackles. ABDOMEN: Soft, bowel sounds present, nontender. No distention. CENTRAL NERVOUS SYSTEM: Cranial nerves II-XII grossly intact. Nonfocal. EXTREMITIES: No edema, no erythema. LABORATORY DATA: WBC 12.2, hemoglobin 11, hematocrit 34, platelets 228. PT 10.7, INR 1, APTT 23.4. Sodium 139, potassium 3.6, chloride 112, CO2 of 22, BUN 18, creatinine 0.8, serum glucose 126, calcium 8.4, total bilirubin 0.3, AST 8, ALT 19, alkaline phosphatase 83. ASSESSMENT AND PLAN: This is a 74-year-old female who presents with rectal bleed. 1. Rectal bleed. CAT scan showed colitis. The night before, she had severe abdominal pain with diarrhea and nausea. We will check the stool for C. diff. Currently the diarrhea is resolved. We will keep her n.p.o., IV fluids, IV antiemetics, IV pain medication p.r.n. and consult GI in the a.m. for further recommendations. We will check H and H q. 6 hours, got the blood consent. Ischemic colitis versus diverticular bleed. 2. Hysterocele, vaginal prolapse, and rectocele. CAT scan is showing hydronephrosis. Seems chronic condition,on pessary. Follows with gynecology/urology. Recommended surgery but patient opted for conservative management. Needs close followup. 3. Hyperlipidemia. Continue statin. 4. Diabetes. Holding home medication. Placed her on insulin sliding scale. Monitor blood sugars. 5. High blood pressure, on lisinopril . Will monitor. 6. Gastroesophageal reflux disease, IV Pepcid b.i.d. 7. Deep venous thrombosis prophylaxis, sequential compression devices for now. 8. Disposition: Closely monitor in the med/surg tele. Level 1 full code. MTDD
[2019-11-28 07:32] LABS: Basophils # (auto) 0.03 K/uL (0-0.2); Basophils % (auto) 0.3 %; Eosinophils # (auto) 0.18 K/uL (0-0.5); Eosinophils % (auto) 1.5 %; Hematocrit (blood only) 34.9 % (37-47); Hemoglobin 11.3 g/dL (12.0-16.0); Immature Granulocytes # (auto) 0.03 K/uL (0.00-0.02); Immature Granulocytes % (auto) 0.3 %; Lymphocytes % (auto) 31.5 %; Mean Corpuscular Hemoglobin 26.7 pg (25-34); Mean Corpuscular Hgb Conc 32.4 g/dL (32-36); Mean Corpuscular Volume 82.5 fL (80-100); Mean Platelet Volume 9.7 fL (7.4-10.4); Monocytes # (auto) 0.74 K/uL (0.11-0.59); Monocytes % (auto) 6.3 %; Neutrophils # (auto) 7.05 K/uL (1.4-6.5); Neutrophils % (auto) 60.1 %; Platelet Count 234 K/uL (130-400); RDW Coefficient of Variation 15.3 % (11.5-14.5); RDW Standard Deviation 46.1 fL (36.4-46.3); Red Blood Count 4.23 M/uL (4.2-5.4); White Blood Count 11.73 K/uL (4.8-10.8)
[2019-11-28] MEDS: FAMOTIDINE 20 MG in SYRINGE 3 ML IV SCH ×2 (08:04→21:34)
[2019-11-28 08:13] LABS: Creatinine Clr Calc Pharmacy 65.3 ml/min; Est GFR (African American) 88.2; Est GFR (Non-African American) 76.1; Magnesium 2.2 mg/dl (1.8-2.4); Potassium 4.4 mmol/L (3.5-5.1)
[2019-11-28 08:19] LABS: Estimated Average Glucose 180 mg/dl; Hemoglobin A1C 7.9 % (4.5-5.6)
[2019-11-28] MEDS: INSULIN ASPART 100 UNITS/ML 3 ML PEN SC SCH ×4 (08:24→21:04)
[2019-11-28] MEDS: lisinopriL 5 MG TAB PO SCH (09:13)
--- NOTE | 2019-11-28 12:28 | Gastrointestinal Consultation ---
Date of Consultation November 28, 2019 Assessment & Plan (1) Bright red blood per rectum: Pt is a 74 y/o female admitted with BRBPR. Initially presented with n/v, diarrhea, abd cramping prior to bleeding starts which seems to indicate perhaps an infectious gastroenteritis episode. However within a night, n/v, diarrhea resolved and painless rectal bleeding starts. CT abd/pelvis w signs of mild colitis in descending and sigmoid colon area. DDX: infectious, ischemic colitis,diverticular bleeding. - Check stool cx and Cdiff if diarrhea present again - Monitor H/H and transfuse prn - Ok for CL diet - If continues to have rectal bleeding will anticipate giving her bowel prep today for colonoscopy tomorrow. If stable, and no longer bleeding, will advance diet and perhaps DC for eventual colonoscopy in about 4-6 week's time. Attg add: I interviewed and examined pt, reviewed chart and labs. Pt in [facility] until Monday, when she had abrupt onset of abd pain, n/v, Monday night. This was followed by multiple episodes of painless hematochezia. On exam, she feels well. Abd is non tender. Suspect LGIB, probably diverticular. DDX = ischemic colitis, infectious gastroenteritis, AVM. Bleeding scan today. History of Present Illness Reason for Consultation: Rectal bleeding Requesting Physician: Dr. Guido Urias Attending Physician: Dr. Ivett Whitt History of Present Illness Pt is a 74 y/o female who is admitted for rectal bleeding. Started with having n/v, abd cramping and diarrhea 2 days ago after eating popcorn. [place] better next day but started having rectal bleeding without stools. She came to ED overnight as she continued to have the bleeding. She denies fever, chills, any more n/v. She doens't have any more of the abd cramping which she had 2 days prior but only sensation of pressure before she would pass blood per rectum. She denies any sick contact, travels. She did finish a course of antibx for UTI a few days ago. On eval, noted WBC up 15K, down to 11K now. H/H stable around 34. Mild BUN rise to 23 at [address] now normal. CT abd/pelvis: 1. Cystocele resulting in bilateral hydroureteronephrosis and bladder distention. Chronic bladder outlet obstruction is suspected given the circumferential bladder wall thickening. Correlate with urinalysis to exclude cystitis is a possible etiology for bladder wall thickening. 2. Suspected vaginal and rectal descent. This would be best assessed with a dedicated pelvic floor protocol MRI of the pelvis. Gynecologic consultation to be considered. 3. Wall thickening of the sigmoid and descending colon raises concern for mild colitis. This could be an etiology for the reported blood per rectum. This would be favored to be infectious or inflammatory. 4. Large hiatal hernia. She reports last colonoscopies done in [place]. Said always had been normal w/o signs of polyps. She had Cologuard test about 2 yrs ago which she reports as normal. Denies family hx of colorectal ca or IBD Allergies Allergy/AdvReac Type Severity Reaction Status Date / Time No Known Allergies Allergy Unverified 11/27/19 23:42 Home Medications Home Medications Medication Instructions Recorded Confirmed Type aspirin 81 mg PO DAILY #0 06/02/16 11/27/19 History atorvastatin 40 mg PO PM #0 06/02/16 11/27/19 History lisinopril 5 mg PO DAILY #0 06/02/16 11/27/19 History metformin 1,000 mg PO BID #0 06/02/16 11/27/19 History omeprazole 40 mg PO QAM #0 06/02/16 11/27/19 History glipizide 10 mg PO DAILY #0 03/21/18 11/27/19 History empagliflozin-linagliptin 1 tab PO DAILY 11/27/19 11/27/19 History [Glyxambi] sulfamethoxazole-trimethoprim 1 tab PO BID 11/27/19 11/27/19 History Patient History Social History Preferred Language: Mongolian Communication Ability: Effective Beliefs That Will Affect Care: None Current Living Situation: Spouse Other Information That Helps Us Care for You: No Feels Safe at Home: Yes Smoking Status: Never smoker Hx Alcohol Use: Yes Hx Substance Use: No Review of Systems Review of Systems: All systems reviewed & are unremarkable except as noted in HPI & below Physical Exam Constitutional: WD/WN, vitals as above well groomed, cooperative and comfortable Eyes: PERRL, conjunctivae normal, anicteric sclerae ENMT: external ear and nose normal, oropharynx normal Respiratory: normal respiratory effort, lungs clear to auscultation Cardiovascular: RRR, no murmur, no edema Gastrointestinal (Abdomen): normal bowel sounds, soft, nontender, no hepatosplenomegaly Skin: no rashes, warm and dry no jaundice Neurologic: Motor/Sensory: no asterixis Psychiatric: A+Ox3, euthymic affect Lymphatic: no lymphedema Results & Data Vital Signs (Past 12 Hours) Vital Signs Temp Pulse Pulse Pulse Resp BP BP 11/28/19 11:58 35.7 C L 79 18 117/66 11/28/19 07:47 36.3 C L 95 H 18 144/79 H 11/28/19 06:21 79 11/28/19 03:30 80 18 154/77 H 11/28/19 01:01 78 18 121/58 L Pulse Ox 11/28/19 11:58 98 11/28/19 07:47 98 11/28/19 06:21 11/28/19 03:30 98 11/28/19 01:01 98
[2019-11-28 13:10] LABS: Hematocrit (blood only) 33.8 % (37-47); Hemoglobin 10.9 g/dL (12.0-16.0)
--- NOTE | 2019-11-28 20:05 | Nuclear Medicine Report ---
TAGGED RED BLOOD CELL GI BLEEDING SCAN CLINICAL HISTORY: rectal bleeding COMPARISON STUDY: CT of the abdomen and pelvis November 27, 2019 TECHNIQUE: Following the IV administration of 22 mCi of technetium 99m UltraTag labeled red blood tarah ls, nuclear bleeding scan was performed. Anterior flow images were obtained every 2 seconds for a tot al 48 seconds. Anterior static images were obtained every 5 minutes for a total of 60 minutes. FINDINGS: No active GI bleed is identified during this 60 minute examination. Normal radiotracer dis tribution is noted. No abnormal foci are noted on the study. IMPRESSION: No evidence for GI bleed during this 60 minute exam. ACT 112: Negative or not required by law. Electronically signed by: Antonio Cosme M.D. 11/28/2019 8:04 PM
[2019-11-28 20:28] LABS: Hematocrit (blood only) 37.5 % (37-47); Hemoglobin 11.9 g/dL (12.0-16.0)
[2019-11-28] MEDS: ATORVASTATIN 40 MG TAB PO SCH (21:34)
--- NOTE | 2019-11-28 22:44 | Hospitalist Progress Note ---
Date of Service November 28, 2019 Subjective Pt admitted earlier today. GI consulted for GI bleed, pt did not have much of GI bleed throughout the day, small amount of mucus in the afternoon. She just came back from GI bleeding scan, pt's is present at the bedside. Pt is pleasant in no acute distress. She is hemodynamically stable and feels well overall. Denies any abdominal pain, nausea, vomiting, fever, chills, chest pain or shortness of breath. Says she never really had abd. pain but bleeding was concerning to her. Mild colitis on CT. GI will cont. to follow. GI bleed scan seems negative for any acute bleed per prelim report. Results & Data Vital Signs (Past 12 Hours) Vital Signs Temp Pulse Pulse Resp BP Pulse Ox 11/28/19 16:17 78 11/28/19 15:39 36.8 C 80 16 125/69 95 11/28/19 11:58 35.7 C L 79 18 117/66 98 Laboratory Results 11/28/19 11/28/19 11/28/19 Range/Units 20:20 20:16 16:44 WBC (4.8-10.8) K/uL RBC (4.2-5.4) M/uL Hgb 11.9 L (12.0-16.0) g/dL Hct 37.5 (37-47) % MCV (80-100) fL MCH (25-34) pg MCHC (32-36) g/dL RDW Std Deviation (36.4-46.3) fL RDW Coeff of Fitz (11.5-14.5) % Plt Count (130-400) K/uL MPV (7.4-10.4) fL Immature Gran % (Auto) % Neut % (Auto) % Lymph % (Auto) % [place] % (Auto) % Eos % (Auto) % Baso % (Auto) % Immature Gran # (Auto) (0.00-0.02) K/uL Neut # (Auto) (1.4-6.5) K/uL Lymph # (Auto) (1.2-3.4) K/uL [place] # (Auto) (0.11-0.59) K/uL Eos # (Auto) (0-0.5) K/uL Baso # (Auto) (0-0.2) K/uL PT (9.0-12.0) Seconds INR (0.9-1.1) APTT (21.0-31.0) Seconds PTT Ratio Sodium (136-145) mmol/L Potassium (3.5-5.1) mmol/L Chloride (98-107) mmol/L Carbon Dioxide (21-32) mmol/L Anion Gap (3-11) BUN (7-18) mg/dl Creatinine (0.6-1.2) mg/dl Est Cr Clr Drug Dosing ml/min Est GFR ( Amer) Est GFR (Non-Af Amer) BUN/Creatinine Ratio (10-20) Glucose (70-99) mg/dl POC Glucose 132 H 97 (70-99) Estimat Average Glucose mg/dl Hemoglobin A1c (4.5-5.6) % Calcium (8.5-10.1) mg/dl Magnesium (1.8-2.4) mg/dl Total Bilirubin (0.2-1) mg/dl AST (15-37) U/L ALT (12-78) U/L Alkaline Phosphatase (45-117) U/L Total Protein (6.4-8.2) gm/dl Albumin (3.4-5.0) gm/dl Globulin (2.5-4.0) gm/dl Albumin/Globulin Ratio (0.9-2) Blood Type Antibody Screen 11/28/19 11/28/19 11/28/19 Range/Units 12:53 12:17 07:31 WBC (4.8-10.8) K/uL RBC (4.2-5.4) M/uL Hgb 10.9 L (12.0-16.0) g/dL Hct 33.8 L (37-47) % MCV (80-100) fL MCH (25-34) pg MCHC (32-36) g/dL RDW Std Deviation (36.4-46.3) fL RDW Coeff of Fitz (11.5-14.5) % Plt Count (130-400) K/uL MPV (7.4-10.4) fL Immature Gran % (Auto) % Neut % (Auto) % Lymph % (Auto) % [place] % (Auto) % Eos % (Auto) % Baso % (Auto) % Immature Gran # (Auto) (0.00-0.02) K/uL Neut # (Auto) (1.4-6.5) K/uL Lymph # (Auto) (1.2-3.4) K/uL [place] # (Auto) (0.11-0.59) K/uL Eos # (Auto) (0-0.5) K/uL Baso # (Auto) (0-0.2) K/uL PT (9.0-12.0) Seconds INR (0.9-1.1) APTT (21.0-31.0) Seconds PTT Ratio Sodium (136-145) mmol/L Potassium (3.5-5.1) mmol/L Chloride (98-107) mmol/L Carbon Dioxide (21-32) mmol/L Anion Gap (3-11) BUN (7-18) mg/dl Creatinine (0.6-1.2) mg/dl Est Cr Clr Drug Dosing ml/min Est GFR ( Amer) Est GFR (Non-Af Amer) BUN/Creatinine Ratio (10-20) Glucose (70-99) mg/dl POC Glucose 166 H 146 H (70-99) Estimat Average Glucose mg/dl Hemoglobin A1c (4.5-5.6) % Calcium (8.5-10.1) mg/dl Magnesium (1.8-2.4) mg/dl Total Bilirubin (0.2-1) mg/dl AST (15-37) U/L ALT (12-78) U/L Alkaline Phosphatase (45-117) U/L Total Protein (6.4-8.2) gm/dl Albumin (3.4-5.0) gm/dl Globulin (2.5-4.0) gm/dl Albumin/Globulin Ratio (0.9-2) Blood Type Antibody Screen 11/28/19 11/28/19 11/28/19 Range/Units 06:56 06:56 06:56 WBC 11.73 H (4.8-10.8) K/uL RBC 4.23 (4.2-5.4) M/uL Hgb 11.3 L (12.0-16.0) g/dL Hct 34.9 L (37-47) % MCV 82.5 (80-100) fL MCH 26.7 (25-34) pg MCHC 32.4 (32-36) g/dL RDW Std Deviation 46.1 (36.4-46.3) fL RDW Coeff of Fitz 15.3 H (11.5-14.5) % Plt Count 234 (130-400) K/uL MPV 9.7 (7.4-10.4) fL Immature Gran % (Auto) 0.3 % Neut % (Auto) 60.1 % Lymph % (Auto) 31.5 % [place] % (Auto) 6.3 % Eos % (Auto) 1.5 % Baso % (Auto) 0.3 % Immature Gran # (Auto) 0.03 H (0.00-0.02) K/uL Neut # (Auto) 7.05 H (1.4-6.5) K/uL Lymph # (Auto) 3.70 H (1.2-3.4) K/uL [place] # (Auto) 0.74 H (0.11-0.59) K/uL Eos # (Auto) 0.18 (0-0.5) K/uL Baso # (Auto) 0.03 (0-0.2) K/uL PT (9.0-12.0) Seconds INR (0.9-1.1) APTT (21.0-31.0) Seconds PTT Ratio Sodium 143 (136-145) mmol/L Potassium 4.4 D (3.5-5.1) mmol/L Chloride 115 H (98-107) mmol/L Carbon Dioxide 22 (21-32) mmol/L Anion Gap 6.0 (3-11) BUN 12 (7-18) mg/dl Creatinine 0.77 (0.6-1.2) mg/dl Est Cr Clr Drug Dosing 65.3 ml/min Est GFR ( Amer) 88.2 Est GFR (Non-Af Amer) 76.1 BUN/Creatinine Ratio 16.0 (10-20) Glucose 137 H (70-99) mg/dl POC Glucose (70-99) Estimat Average Glucose 180 mg/dl Hemoglobin A1c 7.9 H (4.5-5.6) % Calcium 9.0 (8.5-10.1) mg/dl Magnesium 2.2 (1.8-2.4) mg/dl Total Bilirubin (0.2-1) mg/dl AST (15-37) U/L ALT (12-78) U/L Alkaline Phosphatase (45-117) U/L Total Protein (6.4-8.2) gm/dl Albumin (3.4-5.0) gm/dl Globulin (2.5-4.0) gm/dl Albumin/Globulin Ratio (0.9-2) Blood Type Antibody Screen 11/28/19 11/28/19 11/28/19 Range/Units 00:13 00:13 00:13 WBC (4.8-10.8) K/uL RBC (4.2-5.4) M/uL Hgb (12.0-16.0) g/dL Hct (37-47) % MCV (80-100) fL MCH (25-34) pg MCHC (32-36) g/dL RDW Std Deviation (36.4-46.3) fL RDW Coeff of Fitz (11.5-14.5) % Plt Count (130-400) K/uL MPV (7.4-10.4) fL Immature Gran % (Auto) % Neut % (Auto) % Lymph % (Auto) % [place] % (Auto) % Eos % (Auto) % Baso % (Auto) % Immature Gran # (Auto) (0.00-0.02) K/uL Neut # (Auto) (1.4-6.5) K/uL Lymph # (Auto) (1.2-3.4) K/uL [place] # (Auto) (0.11-0.59) K/uL Eos # (Auto) (0-0.5) K/uL Baso # (Auto) (0-0.2) K/uL PT 10.7 (9.0-12.0) Seconds INR 1.0 (0.9-1.1) APTT 23.4 (21.0-31.0) Seconds PTT Ratio 0.9 Sodium 139 (136-145) mmol/L Potassium 3.6 D (3.5-5.1) mmol/L Chloride 112 H (98-107) mmol/L Carbon Dioxide 22 (21-32) mmol/L Anion Gap 5.0 (3-11) BUN 18 (7-18) mg/dl Creatinine 0.89 (0.6-1.2) mg/dl Est Cr Clr Drug Dosing 56.5 ml/min Est GFR ( Amer) 74.0 Est GFR (Non-Af Amer) 63.8 BUN/Creatinine Ratio 20.3 H (10-20) Glucose 126 H (70-99) mg/dl POC Glucose (70-99) Estimat Average Glucose mg/dl Hemoglobin A1c (4.5-5.6) % Calcium 8.4 L (8.5-10.1) mg/dl Magnesium (1.8-2.4) mg/dl Total Bilirubin 0.3 (0.2-1) mg/dl AST 8 L (15-37) U/L ALT 19 (12-78) U/L Alkaline Phosphatase 83 (45-117) U/L Total Protein 6.8 (6.4-8.2) gm/dl Albumin 3.1 L (3.4-5.0) gm/dl Globulin 3.7 (2.5-4.0) gm/dl Albumin/Globulin Ratio 0.8 L (0.9-2) Blood Type O Positive Antibody Screen NEGATIVE 11/28/19 Range/Units 00:13 WBC 12.25 H (4.8-10.8) K/uL RBC 4.12 L (4.2-5.4) M/uL Hgb 11.0 L (12.0-16.0) g/dL Hct 34.0 L (37-47) % MCV 82.5 (80-100) fL MCH 26.7 (25-34) pg MCHC 32.4 (32-36) g/dL RDW Std Deviation 45.0 (36.4-46.3) fL RDW Coeff of Fitz 15.0 H (11.5-14.5) % Plt Count 228 (130-400) K/uL MPV 9.7 (7.4-10.4) fL Immature Gran % (Auto) 0.3 % Neut % (Auto) 60.7 % Lymph % (Auto) 30.4 % [place] % (Auto) 6.8 % Eos % (Auto) 1.5 % Baso % (Auto) 0.3 % Immature Gran # (Auto) 0.04 H (0.00-0.02) K/uL Neut # (Auto) 7.44 H (1.4-6.5) K/uL Lymph # (Auto) 3.72 H (1.2-3.4) K/uL [place] # (Auto) 0.83 H (0.11-0.59) K/uL Eos # (Auto) 0.18 (0-0.5) K/uL Baso # (Auto) 0.04 (0-0.2) K/uL PT (9.0-12.0) Seconds INR (0.9-1.1) APTT (21.0-31.0) Seconds PTT Ratio Sodium (136-145) mmol/L Potassium (3.5-5.1) mmol/L Chloride (98-107) mmol/L Carbon Dioxide (21-32) mmol/L Anion Gap (3-11) BUN (7-18) mg/dl Creatinine (0.6-1.2) mg/dl Est Cr Clr Drug Dosing ml/min Est GFR ( Amer) Est GFR (Non-Af Amer) BUN/Creatinine Ratio (10-20) Glucose (70-99) mg/dl POC Glucose (70-99) Estimat Average Glucose mg/dl Hemoglobin A1c (4.5-5.6) % Calcium (8.5-10.1) mg/dl Magnesium (1.8-2.4) mg/dl Total Bilirubin (0.2-1) mg/dl AST (15-37) U/L ALT (12-78) U/L Alkaline Phosphatase (45-117) U/L Total Protein (6.4-8.2) gm/dl Albumin (3.4-5.0) gm/dl Globulin (2.5-4.0) gm/dl Albumin/Globulin Ratio (0.9-2) Blood Type Antibody Screen Medications Administered Current Inpatient Medications Acetaminophen (Tylenol) 650 mg PO Q4H PRN PRN Reason: Pain or Fever Stop: 12/28/19 03:40 Atorvastatin Calcium (Lipitor) 40 mg PO PM NADIA Stop: 12/28/19 20:59 Last Admin: 11/28/19 21:34 Dose: 40 mg Documented by: Dextrose (Dextrose 50%) 25 - 50 ml IV UD PRN; Protocol PRN Reason: Hypoglycemia Protocol Stop: 12/28/19 04:14 Glucagon (Glucagen) 1 mg SQ UD PRN; Protocol PRN Reason: Hypoglycemia Protocol Stop: 12/28/19 04:14 Glucose (Glucose 40%) 15 - 30 gm PO UD PRN; Protocol PRN Reason: Hypoglycemia Protocol Stop: 12/28/19 04:14 Glucose (Dex4 Glucose) 4 - 8 tabs PO UD PRN; Protocol PRN Reason: Hypoglycemia Protocol Stop: 12/28/19 04:14 Sodium Chloride (Nss 1000ml) 1,000 mls @ 125 mls/hr IV .Q8H NADIA Stop: 12/28/19 03:40 Last Admin: 11/28/19 20:04 Dose: 125 mls/hr Documented by: Famotidine 20 mg/ Syringe 5 mls @ 2.5 mls/min IV BID NADIA Stop: 12/28/19 08:59 Last Admin: 11/28/19 21:34 Dose: 2.5 mls/min Documented by: Insulin Aspart (Novolog Flexpen) 0 units SC ACHS NADIA Stop: 12/28/19 07:29 Last Admin: 11/28/19 21:04 Dose: Not Given Documented by: Lisinopril (Zestril) 5 mg PO DAILY NADIA Stop: 12/28/19 08:59 Last Admin: 11/28/19 09:13 Dose: 5 mg Documented by: Miscellaneous (Carbohydrates For Hypoglycemia) 15 - 30 gm PO UD PRN PRN Reason: Hypoglycemia Treatment Stop: 12/28/19 04:14 Nitroglycerin (Nitrostat) 0.4 mg SL UD PRN PRN Reason: Chest Pain Stop: 12/28/19 03:40 Ondansetron HCl (Zofran) 4 mg IV Q6H PRN PRN Reason: Nausea Stop: 12/28/19 03:40
[2019-11-29] MEDS: SODIUM CHLORIDE 0.9% 1000ML 1,000 ML IV SCH (04:08)
[2019-11-29 06:18] LABS: Hematocrit (blood only) 34.1 % (37-47); Hemoglobin 10.8 g/dL (12.0-16.0)
[2019-11-29 06:53] LABS: BUN Creatinine Ratio 12.9 (10-20); Calcium 8.4 mg/dl (8.5-10.1); Creatinine Clr Calc Pharmacy 86.8 ml/min; Est GFR (African American) 105.2; Est GFR (Non-African American) 90.8
[2019-11-29] MEDS: FAMOTIDINE 20 MG in SYRINGE 3 ML IV SCH (07:55)
[2019-11-29] MEDS: INSULIN ASPART 100 UNITS/ML 3 ML PEN SC SCH ×4 (08:20→20:39)
[2019-11-29] MEDS: lisinopriL 5 MG TAB PO SCH (10:26)
--- NOTE | 2019-11-29 10:37 | Hospitalist Progress Note ---
Date of Service November 29, 2019 Assessment & Plan (1) Hematochezia: Anthony with bright red blood per rectum, which has resolved, Does not have any abdominal pain, no cramps, no nausea vomiting, H&H been stable Patient had a bleeding scan done yesterday 11/28/2019 which shows no active bleedi ng Appreciate input from GI, recommends outpatient colonoscopy Advance diet, will observe overnight, plan to discharge home tomorrow if no further evidence of GI bleed noted Bilateral hydroureteronephrosis Noted in CT abdomen pelvis with cystocele rectocele and vaginal prolapse Discussed with urology, patient's CT scan reviewed by Dr. Cain, the hydroureteronephrosis appears to be chronic, does not need any acute urological intervention And will be seen as an outpatient follow-up Rectocele/vaginal prolapse Noted in CT abdomen pelvis, ANTHROPOLOGY LECTURER consulted appreciate input Patient has been followed with uro-ANTHROPOLOGY LECTURER with [facility] Recommends outpatient follow-up, and possible hysterectomy for improvement of urinary incontinence symptoms Code status: Full code Disposition: Plan to discharge home tomorrow if no further episode of GI bleed Subjective Did not had any further episode of rectal bleed since yesterday, feels fine, no nausea vomiting tolerating diet, very eager to be discharged home Review of Systems Review of Systems: All systems reviewed & are unremarkable except as noted in HPI & below Physical Exam Constitutional: WD/WN, vitals as above no acute distress Eyes: PERRL, conjunctivae normal, anicteric sclerae ENMT: external ear and nose normal, oropharynx normal Neck: trachea midline, no thyromegaly Respiratory: normal respiratory effort, lungs clear to auscultation Cardiovascular: RRR, no murmur, no edema Gastrointestinal (Abdomen): normal bowel sounds, soft, nontender, no hepatosplenomegaly Musculoskeletal: no cyanosis or clubbing, extremities motor strength 5/5 Skin: no rashes, warm and dry Neurologic: PERRL, EOMI, accommodation nl, no face palsy, no dysarthria Psychiatric: A+Ox3, euthymic affect Results & Data Vital Signs (Past 12 Hours) Vital Signs Temp Pulse Pulse Resp BP Pulse Ox 11/29/19 08:00 36.6 C 76 18 117/70 97 11/29/19 07:31 71 11/29/19 04:01 36.6 C 77 20 116/71 97 11/29/19 03:01 68 11/28/19 23:50 36.3 C L 77 20 105/56 L 95
--- NOTE | 2019-11-29 10:53 | Gastroenterology Progress Note ---
Date of Service November 29, 2019 Assessment & Plan (1) Bright red blood per rectum: Pt is a 74 y/o female admitted with BRBPR. Initially presented with n/v, diarrhea, abd cramping prior to bleeding starts which seems to indicate perhaps an infectious gastroenteritis episode. CT abd/pelvis w signs of mild colitis in descending and sigmoid colon area. DDX: infectious, ischemic colitis,diverticular bleeding. Hadn't had rectal bleeding since yesterday afternoon, GI bleeding scan negative. H/H quite stable. - Check stool cx and Cdiff if diarrhea present again - CL diet started, advance as tolerated. - If continues to have rectal bleeding will anticipate giving her bowel prep today for colonoscopy tomorrow. If stable, and no longer bleeding, will advance diet and perhaps DC for eventual colonoscopy in about 4-6 week's time. Attg add: I interviewed and examined pt, reviewed chart and labs. Pt without bleeding, stable hgb/ VS, neg bleeding scan. A/P: Prob diverticular bleed. OK to adv diet to low residue. Please cont to follow; ok for d/c home if no further bleeding over the next 24 to 48 hours with outpt cscopy in 4-6 weeks. Call with questions over weekend. Subjective Pt reports no rectal bleeding since 3:30PM yesterday. Denies any abd pain, n/v, feels hungry, wants to go home today Blood ct w mild decrease in H/H now 10.834 GI bleeding scan negative Review of Systems Review of Systems: All systems reviewed & are unremarkable except as noted in HPI & below Physical Exam Constitutional: WD/WN, vitals as above well groomed, cooperative and comfortable Eyes: PERRL, conjunctivae normal, anicteric sclerae ENMT: external ear and nose normal, oropharynx normal Respiratory: normal respiratory effort, lungs clear to auscultation Cardiovascular: RRR, no murmur, no edema Gastrointestinal (Abdomen): normal bowel sounds, soft, nontender, no hepatosplenomegaly Skin: no rashes, warm and dry no jaundice Psychiatric: A+Ox3, euthymic affect Lymphatic: no lymphedema Results & Data Vital Signs (Past 12 Hours) Vital Signs Temp Pulse Pulse Resp BP Pulse Ox 11/29/19 08:00 36.6 C 76 18 117/70 97 11/29/19 07:31 71 11/29/19 04:01 36.6 C 77 20 116/71 97 11/29/19 03:01 68 11/28/19 23:50 36.3 C L 77 20 105/56 L 95
--- NOTE | 2019-11-29 13:33 | Consultation Report ---
DATE OF CONSULTATION: 11/29/2019 REASON FOR CONSULT: Vaginal prolapse. REQUESTED BY: Dr. Duran. HISTORY OF PRESENT ILLNESS: The patient is a 74-year-old female, para 4-0-1-4, postmenopausal, who has a known total uterine prolapse with cystocele and rectocele. The patient was admitted yesterday from the ER with rectal bleeding. Her bleeding has stopped. She is generally well. She has used several pessaries in the past by Dr. Mcclure, the urogynecologist from [place], with no success. PAST MEDICAL HISTORY: Includes diabetes with medication control and history of colitis. SOCIAL HISTORY: Denies smoking, alcohol or drug use. REVIEW OF SYSTEMS AND FAMILY HISTORY: Noncontributory. VITAL SIGNS: Blood pressure 145/76, pulse 72, respirations 18. ALLERGIES: No known allergies. MEDICATIONS: Include aspirin 81 mg daily, atorvastatin 40 mg p.o. at nighttime, Glyxambi 1 tablet daily, glipizide 10 mg daily, lisinopril 5 mg daily, metformin 1000 mg twice a day, omeprazole 40 mg q.morning and Bactrim 1 tablet orally b.i.d. PHYSICAL EXAMINATION: The patient is alert and oriented. She is ambulatory. She is tolerating a diet. There is no bleeding currently that she states. On exam, her abdomen is soft. She does have a total vaginal vault prolapse with uterus noted to be externally. This was placed back. Rectocele and cystocele are also noted. ASSESSMENT: Pelvic organ prolapse. PLAN: Follow back up as an outpatient with Dr. Mcclure to consider the possibility of surgery.
[2019-11-29] MEDS: ATORVASTATIN 40 MG TAB PO SCH (20:40)
[2019-11-30] MEDS: lisinopriL 5 MG TAB PO SCH (07:39)
[2019-11-30 08:21] LABS: Hematocrit (blood only) 37.8 % (37-47); Hemoglobin 12.2 g/dL (12.0-16.0)
[2019-11-30] MEDS: INSULIN ASPART 100 UNITS/ML 3 ML PEN SC SCH (08:34)
[2019-11-30] MEDS ORDERED: ASPIRIN 81 MG ECTAB PO SCH (09:00)
[2019-11-30] MEDS ORDERED: PANTOprazole 40 MG TAB PO SCH (09:00)
--- NOTE | 2019-11-30 10:34 | Discharge Summary ---
Date of Service November 30, 2019 Admission HPI Per Admitting Provider DICTATED BY: Juan Francisco Holley MD DATE OF ADMISSION: 11/28/2019 CHIEF COMPLAINT: Rectal bleed. HISTORY OF PRESENT ILLNESS: This is a 74-year-old female with past medical history significant for type 2 diabetes, hyperlipidemia, hypertension, GERD, irritable bowel syndrome, history of rectocele, cystocele, uterovaginal prolapse, chronic serous otitis media of both ears, generalized anxiety disorder, who presents with rectal bleed. The patient says yesterday night she had severe abdominal pain and several episodes of diarrhea and vomiting and that got resolved, but yesterday morning then she developed some clots in her blood, few episodes, so she came to the ER. In the ER, she had no more bleeding. Her hemoglobin was stable and CAT scan showed some colitis and cystocele, which was chronic. As the bleeding seemed to stop, she was discharged home and advised to come back if the bleeding recurs, but after going home, from 3:30 pm she had several episodes of bright red blood per rectum and getting worse, so she came to the ER. After coming to the ER, the bleeding stopped and her hemoglobin has dropped from 12.2 to 11. Currently resting comfortably and hemodynamically stable. She had severe belly pain when she had diarrhea last night, but currently there is no pain. Denies any chest pain. No shortness of breath, no cough, no fever, no chills, no headache, no blurred vision, no runny nose, no sore throat, no difficulty swallowing. Otherwise, appetite is okay. Ambulates okay. No hematuria, no burning micturition, no swelling in the legs, no rash. Principal Diagnosis Bleeding per rectum, resolved, Vaginal prolapse-chronic Discharge Exam Constitutional WD/WN, vitals as above no acute distress Eyes PERRL, conjunctivae normal, anicteric sclerae ENMT external ear and nose normal, oropharynx normal Neck trachea midline, no thyromegaly Respiratory normal respiratory effort, lungs clear to auscultation Cardiovascular RRR, no murmur, no edema Gastrointestinal (Abdomen) normal bowel sounds, soft, nontender, no hepatosplenomegaly Musculoskeletal no cyanosis or clubbing, extremities motor strength 5/5 Skin no rashes, warm and dry Neurologic PERRL, EOMI, accommodation nl, no face palsy, no dysarthria Psychiatric A+Ox3, euthymic affect Discharge Data Allergies Allergy/AdvReac Type Severity Reaction Status Date / Time No Known Allergies Allergy Unverified 11/27/19 23:42 Consultations 11/28/19 00:35 ED Decision to Admit Stat 11/28/19 03:41 Consult Case Management - Discharge Planning Routine 11/28/19 08:00 Consult Gastroenterology Routine 11/29/19 10:37 Consult Gynecology Routine Hospital Course (1) Hematochezia: no further episode of GI bleed tolerating diet Hb stable at 12 no complain of abdominal pain , comfortable stable to be discharged home Anthony with bright red blood per rectum, which has resolved, Does not have any abdominal pain, no cramps, no nausea vomiting, H&H been stable Patient had a bleeding scan done yesterday 11/28/2019 which shows no active bleeding Appreciate input from GI, recommends outpatient colonoscopy in 4-6 weeks Bilateral hydroureteronephrosis Noted in CT abdomen pelvis with cystocele rectocele and vaginal prolapse Discussed with urology, patient's CT scan reviewed by Dr. Cain, the hydroureteronephrosis appears to be chronic, does not need any acute urological intervention And will be seen as an outpatient follow-up Rectocele/vaginal prolapse Noted in CT abdomen pelvis, LOOM CHECKER consulted appreciate input Patient has been followed with uro-LOOM CHECKER with [facility] Recommends outpatient follow-up, and possible hysterectomy for improvement of urinary incontinence symptoms Code status: Full code Disposition: stable to be discharged home today Total Time Total Time Spent Total Time Spent (In Minutes): approx 40 mins Total Time Includes: Examination of the Patient, Discharge Planning and Medication Reconciliation Discharge Plan Discharge Items Patient Disposition: Home - Self-Care Reason For Visit: RECTAL BLEED Discharge Diagnosis: Bleeding per rectum, resolved, Vaginal prolapse-chronic Activity: Resume your previous activity Non-emergency contact: Primary Care Provider Call non-emergency contact if: you have any medication questions Follow-up/Referrals: Amadou Etienne MD [Physician] - Ivett Whitt [Physician] - (follow up in 4-6 weeks for colonoscopy ) Marcy Marin DO [Primary Care Provider] - Diet: Regular Addtl Attending Provider Instructions: Hospital follow-up with family physician in 1 week, office will call with appointment CT abdomen pelvis showed prolapse of urinary bladder possible causing obstruction and dilatation of ureter and kidneys Need a urology follow-up in 1-2 weeks for bilateral hydroureteronephrosis(swelling/dilatation of ureter and kidneys) noted in his CT abdomen pelvis Follow-up with urogynecology for rectal and vaginal prolapse Do not take aspirin, avoid Aleve, Motrin Advil, naproxen, ibuprofen-which can cause bleeding in your GI tract: Stomach/colon Colonoscopy with gastroenterology in 4-6 weeks, office will call with appointment Pending Studies at Discharge: No Stand-Alone Forms: [facility], Smoking Cessation Medications and DC Order Prescriptions: Continued atorvastatin 40 mg Tablet 40 mg PO PM Qty: 0 RF: 0 omeprazole 40 mg Capsule,Delayed Release(Dr/Ec) 40 mg PO QAM Qty: 0 RF: 0 lisinopril 5 mg Tablet 5 mg PO DAILY Qty: 0 RF: 0 metformin 1,000 mg Tablet Extended Release 24hr 1,000 mg PO BID Qty: 0 RF: 0 glipizide 10 mg Tablet Extended Release 24hr 10 mg PO DAILY Qty: 0 RF: 0 Glyxambi 25-5 mg Tablet 1 tab PO DAILY RF: 0 Discontinued aspirin 81 mg Tablet,Delayed Release (Dr/Ec) 81 mg PO DAILY Qty: 0 RF: 0 sulfamethoxazole-trimethoprim 800-160 mg tablet 1 tab PO BID RF: 0 Discharge Orders: Discharge Order (Routine); Ordered 11/30/19 Ordered By: Deonna Titus/Other Patient Handouts: Diabetes Manage A1C Test Admission Data Admit Date/Time: 11/28/19 02:28 Attending Provider: Deonna Duran Admit Provider: Juan Francisco Holley Primary Care Provider: Marcy Marin Other Providers: Juan Francisco Holley ; Ivett Whitt ; Javier Mario ; Dea Wolfe ; Jeanne Woo ; Aden Arevalo ; Romain Sal ; Owen Art ; Alon Hernández ; Porsha Ramírez ; Flor Edward V. ; Lena Alfred
== END 2019-11-30 12:34 | disposition home or self-care (01) | DRG 378 ==
LOC: ED 23:03 → 2N 11-28 02:28 → SUATTDRO 11-28 02:28 → 2N 11-28 03:20 → 2W 11-30 08:41